=== PATIENT | male | born 1990 | race Two or more races ===

== ENCOUNTER 2017-12-27 09:06 | Emergency (ER) | payer OTHER ==
[~2017-12-27] VITALS: Ht 175.3 cm; Wt 78.0 kg
[~2017-12-27 09:06] MED LIST: AMOXICILLIN500 M1; LEVSIN/SL0.125 MG SL; VITAMIN C1000 MG; [UNRECOGNIZED DRUG - OTHER]
== END 2017-12-27 10:26 | disposition home or self-care (01) ==
LOC: ER 09:06
DX: F06.4 Anxiety disorder due to known physiological condition (principal)

== ENCOUNTER 2018-03-13 20:00 | Emergency (ER) | payer OTHER ==
[~2018-03-13] VITALS: Ht 172.7 cm; Wt 65.8 kg
== END 2018-03-13 22:24 | disposition home or self-care (01) ==
LOC: ER 20:00
DX: R42 Dizziness and giddiness (principal)

== ENCOUNTER 2018-08-27 17:15 | Emergency (ER) | payer OTHER ==
[~2018-08-27] VITALS: Ht 172.7 cm; Wt 77.1 kg
== END 2018-08-27 19:52 | disposition home or self-care (01) ==
LOC: ER 17:15
DX: R42 Dizziness and giddiness (principal)

== ENCOUNTER 2018-12-24 19:38 | Emergency (ER) | payer OTHER ==
[~2018-12-24] VITALS: Ht 175.3 cm; Wt 71.2 kg
== END 2018-12-24 22:04 | disposition home or self-care (01) ==
LOC: ER 19:38
DX: R42 Dizziness and giddiness (principal)

== ENCOUNTER 2019-12-02 13:21 | Emergency (ER) | payer OTHER ==
[~2019-12-02] VITALS: Ht 172.7 cm; Wt 79.4 kg
== END 2019-12-02 17:35 | disposition home or self-care (01) ==
LOC: ER 13:21
DX: R51 Headache (principal)

== ENCOUNTER 2022-03-01 15:40 | Emergency (ER) | payer OTHER ==
[~2022-03-01] VITALS: Ht 172.7 cm; Wt 87.5 kg
== END 2022-03-01 19:49 | disposition home or self-care (01) ==
LOC: ER 15:40
DX: I10 Essential (primary) hypertension (principal)